=== PATIENT | male | born 1975 ===

== ENCOUNTER 2020-04-11 07:06 | Emergency (ER) | payer OTHER ==
[2020-04-11 07:12] VITALS: BP 149/101; PULSE 75; TEMP 97.8; BMI 31.8
--- NOTE | 2020-04-11 07:33 | PDOC ---
History of Present Illness - General Chief Complaint: Injury Stated Complaint: HAND INJURY Time Seen by Provider: 04/11/20 07:26 History Source: Patient Exam Limitations: No Limitations - History of Present Illness Initial Comments: 04/11/20 07:32 Casey Kirkpatrick is an otherwise healthy 44M presenting with left hand laceration. Patient was attempting to open the back of his phone last night at 9PM with a knife he found in his home he has never used before, was unsuccessful and knife slipped and he cut his hand along the thenar process of the left palmar thumb. Was painful and bleeding dressed wound and went to bed. This AM woke up and had more pain and swelling of hand, denies sensation or loss of movement to fingers or wrist. Denies fever, chills, nausea, vomiting, chest pain, SOB, abd pain, urinary sx. Has not gotten tetanus shot in a long time. No allergies to antibiotics. Past History - Medical History Allergies/Adverse Reactions: Allergies Allergy/AdvReac Type Severity Reaction Status Date / Time No Known Allergies Allergy Verified 04/11/20 07:07 Home Medications: Ambulatory Orders Cephalexin Monohydrate [Keflex -] 500 mg PO Q6H 7 Days #28 capsule 04/11/20 COPD: No HTN: Yes - Psycho-Social/Smoking History Smoking History: Never smoked Have you smoked in the past 12 months: No - Substance Abuse Hx (Audit-C & DAST Scrn) How often the patient has a drink containing alcohol: Never Score: In Men: 4 or > Positive; In Women: 3 or > Positive: 0 Screen Result (Pos requires Nsg. Audit-10AR): Negative In the last yr the pt used illegal drug/Rx for NonMed reason: No Score: Yes response is considered Positive: 0 Screen Result (Positive result requires Nsg. DAST-10): Negative Review of Systems - Review of Systems Able to Perform ROS?: Yes Constitutional: No: Symptoms Reported HEENTM: No: Symptoms Reported Respiratory: No: Symptoms reported Cardiac (ROS): No: Symptoms Reported ABD/GI: No: Symptoms Reported : No: Symptoms Reported Musculoskeletal: No: Symptoms Reported Integumentary: Yes: Lesions Neurological: No: Symptoms reported Endocrine: No: Symptoms Reported Hematologic/Lymphatic: No: Symptoms Reported All Other Systems: Reviewed and Negative *Physical Exam - Vital Signs Last Vital Signs Temp Pulse Resp BP Pulse Ox 97.8 F 75 18 149/101 H 100 04/11/20 07:08 04/11/20 07:08 04/11/20 07:08 04/11/20 07:08 04/11/20 07:08 - Physical Exam General Appearance: Yes: Nourished, Appropriately Dressed, Other (sitting in chair in NAD, has hand wrapped in bandana). No: Apparent Distress HEENT: positive: EOMI, SADIA, Normal Voice, Symmetrical, Pharynx Normal, Hearing Grossly Normal. negative: Scleral Icterus (R), Scleral Icterus (L), Pharyngeal Erythema, Tonsillar Exudate, Tonsillar Erythema Neck: positive: Trachea midline, Normal Thyroid, Supple. negative: Tender, Rigid, Lymphadenopathy (L), Tender midline Respiratory/Chest: positive: Lungs Clear, Normal Breath Sounds. negative: Chest Tender, Respiratory Distress, Accessory Muscle Use, Crackles, Rales, Rhonchi, Stridor, Wheezing Cardiovascular: positive: Regular Rhythm, Regular Rate. negative: Murmur Gastrointestinal/Abdominal: positive: Normal Bowel Sounds, Flat, Soft. negativ e: Tender, Organomegaly, Pulsatile Mass, Guarding, Rebound Musculoskeletal: positive: Normal Inspection. negative: CVA Tenderness, CVA Tenderness (R), CVA Tenderness (L), Decreased Range of Motion, Vertebral Tenderness Extremity: positive: Normal Capillary Refill, Normal Range of Motion, Tender, Pelvis Stable, Other (LUE hand: 1 inch laceration to the thenar eminence of left thumb, no erythema or bleeding, gapes a bit with movement of thumb, full ROM to all fingers, no loss of sensation, motor 4/5 limited to pain, radial/median/ulnar nerves intact, tender to palpation). negative: Normal Inspection, Pedal Edema, Swelling, Calf Tenderness Integumentary: positive: Normal Color, Dry, Warm Neurologic: positive: Fully Oriented, Alert, Normal Mood/Affect, Normal Response Procedures - Laceration/Wound Repair Left Volar Hand Wound Length: 2.6 to 5.0 cm Wound Explored: clean, no foreign body present Wound's Depth, Shape: superficial, linear Irrigated w/ Saline: Yes Betadine Prep: No Anesthesia: 1% Lidocaine (4cc) Amount of Anesthetic (ccs): 4 Wound Debrided: minimal Wound Repaired With: Sutures Suture Size/Type: 4:0 Number of Sutures: 3 Layer Closure: No Medical Decision Making - Medical Decision Making 04/11/20 07:32 Patient has no PMH, has not gotten tetanus in a while, presents with hand laceration with dirty knife. No systemic sx, no evidence of nerve or tendon damage. Giving Boostrix, Tylenol. Will clean wound and lightly suture. Needs coverage with Keflex outpatient. 04/11/20 19:41 Heavily irrigated with sterile water, sutured laceration with 3x 4-0 nylons. D/c home with suture care instructions and Keflex. Discharge - Discharge Information Problems reviewed: Yes Clinical Impression/Diagnosis: Laceration of left hand Qualifiers: Encounter type: initial encounter Foreign body presence: without foreign body Qualified Code(s): S61.412A - Laceration without foreign body of left hand, initial encounter Condition: Improved Disposition: HOME - Additional Discharge Information Prescriptions: Cephalexin Monohydrate [Keflex -] 500 mg PO Q6H 7 Days #28 capsule - Follow up/Referral - Patient Discharge Instructions Patient Printed Discharge Instructions: DI for Laceration Repair Additional Instructions: Today you were seen for a cut on your hand. We have repaired it with sutures, given you a tetanus shot, and started you on antibiotics for prevention of infection. Please take them as scheduled, and take Tylenol or Motrin for pain control as instructed on the bottle. Your sutures need to be removed in the next 7 days. Wear gloves at work and do not allow the area to get dirty, clean with soap and water after 24 hours. Follow-up with your regular doctor in the next week. If you experience worse pain, difficulty moving the hand, see bleeding or pus, or have any other new or concerning symptoms, please return to the emergency room. - Post Discharge Activity Work/Back to School Note: Back to Work
[2020-04-11] MEDS ORDERED: DIPHTH,PERTUSS(ACELL),TET 0.5 ML DISP.SYRIN IM ONE ×2 (07:42→07:59)
[2020-04-11] MEDS ORDERED: ACETAMINOPHEN 500 MG TABLET (FP) PO ONE (07:43)
[2020-04-11] MEDS ORDERED: ACETAMINOPHEN 500 MG TABLET (FP) ONE (07:59)
--- OUTSIDE RECORDS SUMMARY | 2020-04-11 08:04 | XMS ---
:1975 Author [facility] Support Name Relationship Address Phone UE Unavailable Unavailable Unavailable LADARIUS KWAN [facility] [address] [place] [address] Re-disclosure Warning The records that you are about to access may contain information from federally- assisted alcohol or drug abuse programs. If such information is present, then the following federally mandated warning applies: This information has been disclosed to you from records protected by federal confidentiality rules (42 CFR part 2). The federal rules prohibit you from making any further disclosure of this information unless further disclosure is expressly permitted by the written consent of the person to whom it pertains or as otherwise permitted by 42 CFR part 2. A general authorization for the release of medical or other information is NOT sufficient for this purpose. The Federal rules restrict any use of the information to criminally investigate or prosecute any alcohol or drug abuse patient.The records that you are about to access may contain highly sensitive health information, the redisclosure of which is protected by Article 27-F of the [facility] Public Health law. If you continue you may haveaccess to information: Regarding HIV / AIDS; Provided by facilities licensed or operated by the [facility] Office of Mental Health; or Provided by the [facility] Office for People With Developmental Disabilities. If such information is present, then the following [facility] mandated warning applies: This information has been disclosed to you from confidential records which are protected by state law. State law prohibits you from making any further disclosure of this information without the specific written consent of the person to whom it pertains, or as otherwise permitted by law. Any unauthorized further disclosure in violation of state law may result in a fine or skilled nursing sentence or both. A general authorization for the release of medical or other information is NOT sufficient authorization for further disclosure. Insurance Providers Payer name Policy type Policy ID Covered Covered republican's Policy P ricardo / Coverage republican ID relationship to [facility] ormation type maynard SELF PAY SP INSURANCE
[2020-04-11] MEDS ORDERED: CEPHALEXIN MONOHYDRATE 500 MG CAPSULE (UD) PO ONE (08:55)
--- NOTE | 2020-04-11 08:56 | PDOC ---
Attending Attestation - Resident Resident Name: Shiv Montero - ED Attending Attestation I have performed the following: I have examined & evaluated the patient, The case was reviewed & discussed with the resident, I agree w/resident's findings & plan, Exceptions are as noted - HPI HPI: 04/11/20 08:52 43-year-old gentleman presenting with a right hand laceration. He was opening a plastic box yesterday was using a knife and sliced his left palm. He noticed it was still bleeding this morning so came for evaluation. Denies any focal numbness, tingling. Unknown tetanus status. No other injuries social: works as [employer] - Physicial Exam PE: 04/11/20 08:56 exam: superficial, slightly gaping on the L thenar eminence slightly bleeding, no fb noted on expiration n/v intact including all flexor/extensor functions - Medical Decision Making 04/11/20 08:56 will irrigate/cleanse as slightyl gaping, will place a couple of tacking sutures. will update tenans will give prophylaxic abx 04/11/20 09:[address] montero with good approximation Discharge - Discharge Information Problems reviewed: Yes Clinical Impression/Diagnosis: Laceration of left hand Qualifiers: Encounter type: initial encounter Foreign body presence: without foreign body Qualified Code(s): S61.412A - Laceration without foreign body of left hand, initial encounter Condition: Improved Disposition: HOME - Admission No - Additional Discharge Information Prescriptions: Cephalexin Monohydrate [Keflex -] 500 mg PO Q6H 7 Days #28 capsule - Follow up/Referral - Patient Discharge Instructions Patient Printed Discharge Instructions: DI for Laceration Repair Additional Instructions: Today you were seen for a cut on your hand. We have repaired it with sutures, given you a tetanus shot, and started you on antibiotics for prevention of infection. Please take them as scheduled, and take Tylenol or Motrin for pain control as instructed on the bottle. Your sutures need to be removed in the next 7 days. Wear gloves at work and do not allow the area to get dirty, clean with soap and water after 24 hours. Follow-up with your regular doctor in the next week. If you experience worse pain, difficulty moving the hand, see bleeding or pus, or have any other new or concerning symptoms, please return to the emergency room. - Post Discharge Activity Work/Back to School Note: Back to Work
[2020-04-11] MEDS ORDERED: CEPHALEXIN MONOHYDRATE 500 MG CAPSULE (UD) ONE (09:04)
== END 2020-04-11 09:41 | disposition home or self-care (01) ==
LOC: JER 07:06
PROC: 0HQGXZZ Repair Left Hand Skin, External Approach (ICD-10-PCS; principal; 2020-04-11)
PROC: 3E0234Z Introduction of Serum, Toxoid and Vaccine into Muscle, Percutaneous Approach (ICD-10-PCS; 2020-04-11)
DX: S61.412A Laceration without foreign body of left hand, initial encounter (principal)
CPT/HCPCS: 90715; 99285-25